=== PATIENT | male | born 1970 | race Caucasian/White ===

== ENCOUNTER 2022-09-14 13:10 | Emergency (ER) | payer OTHER, SELFPAY ==
[2022-09-14 13:11] VITALS: BP 163/105; PULSE 106; RESP 14; TEMP 36.6; O2SAT 98; BMI 25.1
[2022-09-14] MEDS: Diphth,Pertuss(Acell),Tet Vac 0.5 ML Vial IM (13:47)
--- NOTE | 2022-09-14 13:48 | EX.ED.GENINJ ---
HPI History of Present Illness Chief Complaint: Laceration Informant: patient Narrative Narrative: Patient accidentally cut the lateral aspect of his left nondominant hand wrist at work with a carpet knife. Bleeding is controlled. He states there is 1 small area on the dorsum of his thumb that seems a little bit numb but that only occurred after he was pressing on the wound for a while. No loss of function. No weakness. Last tetanus was unknown. Patient states he is on no meds. No anticoagulation. Pressure made it better nothing made it worse. No other injury. [facility] Medical History Diabetes mellitus type II, controlled Home Medications NK 09/14/22 [History Last Taken Unknown] Allergy/AdvReac Type Severity Reaction Status Date / Time No Known Allergies Allergy Verified 09/14/22 13:17 Social History Smoking Status: Current every day smoker tobacco type: cigarettes ROS ROS ED Constitutional Constitutional ED: Denies fever(s) Gastrointestinal Gastrointestinal: Denies nausea or vomiting Musculoskeletal Musculoskeletal: Denies arthralgias Integumentary Reports Abrasions Neurologic Neurologic: Reports paresthesias; Denies headache(s) or weakness Hematologic/Lymphatic Hematologic/Lymphatic: Denies easy bleeding or easy bruising Allergic/Immunologic Allergic/Immunologic ED: Denies urticaria EXAM Physical Exam Const Vital Signs: 09/14/22 13:11 Temperature 97.9 F Temperature Source Temporal Pulse Rate 106 H Respiratory Rate 14 Blood Pressure 163/105 H Blood Pressure Mean 124 Pulse Ox 98 Oxygen Delivery Method Room Air Positive well nourished and well developed General Appearance ED: well developed and NAD HEENT atraumatic Resp normal respiratory effort Extremity Extremity Narrative: Patient has a 4 centimeter flap type curvilinear laceration on the volar lateral aspect of the left wrist. No active bleeding. This looks far too lateral to get near typical arterial supply. By history there was no arterial bleeding. His sensation is intact everywhere distally but he feels its just a little different in a small area on the dorsal lateral part of his thumb. Its about the size of 1 or 2 fingernails. But the tip of the thumb itself has totally normal sensation. His range of motion is completely normal including all thumb motion. Neuro oriented x3 Neuro Narrative: See above. Skin Skin Narrative: Laceration as above total length 4 cm MDM MDM MDM Narrative Medical decision making narrative: Procedure: Suture laceration: Discussed risk benefits. The area was cleansed with Shur-Clens. Sterilely prepped and draped. Anesthetized with 3-1/2 cc of 1% lidocaine locally with good anesthesia. It was thoroughly scrubbed. It was irrigated with saline from syringe. There was a little bit of venous oozing proximally from the wound but this was stopped with just mild pressure. A total of 6 interrupted 4-0 Ethilon sutures were placed. No further bleeding. There is a small opening left in the wound at 1 end to allow any exit of blood. He tolerated this well. We discussed follow-up care and timing of removal. Discharge Plan Triage Chief Complaint: Laceration ED Provider: Pavan Hoyt Dx/Rx/DC Orders Clinical Impression: Laceration of left wrist Instructions: ED Laceration, Hand: All Closures Prescriptions: No Action NK Primary Care Provider: Care Physician,No Primary Referrals: Omayra Araiza MD [Med Staff - Animal Ride Manager] - 10-14 Days suture removal Activity Restrictions/Additional Instructions: Sutures out in 10 to 14 days. Keep area clean and covered until sutures removed. Return with redness, swelling, pain, drainage, odor, fevers or other concerns. Disposition Disposition: Home, Self Care
== END 2022-09-14 15:10 | disposition home or self-care (01) ==
PROVIDERS: Emergency Provider Emergency Medicine; PCP Family Medicine; Visit Provider Emergency Medicine
DX: S61.512A Laceration without foreign body of left wrist, initial encounter (principal); F17.210 Nicotine dependence, cigarettes, uncomplicated; Z23 Encounter for immunization; W26.0XXA Contact with knife, initial encounter
CPT/HCPCS: 12002; 90715; 99284